=== PATIENT | male | born 1950 | race Caucasian/White ===

== ENCOUNTER 2022-05-11 23:14 | Inpatient (IN) | payer MEDICARE ==
[2022-05-11 23:36] VITALS: BMI 21.5
[2022-05-11] MEDS ORDERED: Acetaminophen 325 MG TAB PO PRN (23:54)
[2022-05-11] MEDS ORDERED: Ondansetron PF 4 MG/2 ML Vial IVP PRN (23:54)
[2022-05-11] MEDS ORDERED: Guaifenesin DM 100-10/5 ML UDCUP PO PRN (23:54)
[2022-05-11] MEDS ORDERED: Senokot S 8.6-50 MG TAB PO PRN (23:54)
[2022-05-11] MEDS ORDERED: Calcium Carbonate 500 MG ChewTAB PO PRN (23:54)
[2022-05-11] MEDS ORDERED: HYDROcodone/Acetaminophen 5/325 mg Tablet PO PRN (23:54)
[2022-05-12] MEDS ORDERED: Dextrose 5% in Water 1,000 ML IV PRN (00:03)
[2022-05-12] MEDS ORDERED: Dextrose 50% Abboject 50 ML SYRINGE SLOW IVP PRN (00:03)
[2022-05-12] MEDS ORDERED: HumaLOG 300 UNITS/3 ML VIAL SC PRN (00:03)
[2022-05-12] MEDS ORDERED: Lactated Ringer's 500 ML IV SCH ×2 (00:15)
[2022-05-12] MEDS ORDERED: Piperacillin/Tazobactam 3.375 GM in Sodium Chloride 0.9% 100 ML IVPB SCH ×2 (01:00→06:00)
[2022-05-12 05:02] LABS: #Eosinphils 0.4 10x3/uL (0.0-0.5); #Monocytes 0.7 10x3/uL (0.0-1.1); #Neutrophils 4.5 10x3/uL (1.5-8.4); %Basophils 0.5 % (0.0-2.0); %Eosinophils 4.3 % (0.0-6.0); %Lymphocytes 31.1 % (18.0-47.0); %Monocytes 8.2 % (0.0-10.0); %Neutrophils 55.7 % (40.0-75.0); Hemoglobin 11.6 g/dL (13.5-17.5); Mean Corpuscular HGB CONC 32.6 g/dL (32.0-36.0); Mean Corpuscular Hemoglobin 31.4 pg (27.0-33.0); Mean Corpuscular Volume 96.2 fl (81.2-95.1); Mean Platelet Volume 10.6 fl (7.4-10.4); Platelet Count 245 10x3/uL (150-450); RBC Distribution Width 14.8 % (11.5-14.5); White Blood Cell (WBC) Count 8.1 10x3/uL (3.5-10.5)
[2022-05-12 05:12] LABS: INR-International Normal Ratio 1.4; PTT 26.2 sec (22.0-33.0); Prothrombin Time 14.8 sec (9.5-12.1)
[2022-05-12 05:13] LABS: Anion Gap 13 mmol/L (10-20); BUN (Urea Nitrogen) 16 mg/dL (8.4-25.7); Calc. Creatinine Clearance 55 mL/min (70-130); Calcium 8.9 mg/dL (7.8-10.44); Carbon Dioxide 23 mmol/L (23-31); Cardiac Risk 4.5 (Less than 4.5); Chloride 108 mmol/L (98-107); Cholesterol 171 mg/dl (< 200 Desired); Estimated GFR 56; Glucose 173 mg/dL (80-115); HDL Cholesterol 38 mg/dL (>60 Neg Risk); LDL Cholesterol, Calculated 109 mg/dL; Potassium 4.1 mmol/L (3.5-5.1); Sodium 140 mmol/L (136-145); Triglycerides 119 mg/dL (Less than 150)
[2022-05-12] MEDS: Piperacillin/Tazobactam 3.375 GM in Sodium Chloride 0.9% 100 ML IVPB SCH ×3 (06:11→20:18)
[2022-05-12 06:35] LABS: SARS-CoV-2 NAA Rapid Test Not Detected (NotDetected)
[2022-05-12] MEDS: Mometasone/Formoterol 200/5 60 PUFF INH SCH ×2 (07:30→20:25)
[2022-05-12] MEDS ORDERED: Nicotine 14 MG PATCH TD PRN (09:35)
[2022-05-12] MEDS: HYDROcodone/Acetaminophen 7.5/325 mg Tablet PO PRN ×2 (11:15→17:16)
[2022-05-12] MEDS: metFORMIN 500 MG TAB PO SCH ×2 (11:16→17:16)
[2022-05-12] MEDS: Famotidine 20 MG TAB PO SCH ×2 (11:16→20:19)
[2022-05-12] MEDS: Vancomycin HCl 750 MG in Sodium Chloride 0.9% 250 ML 250 ML IVPB SCH ×2 (11:16→20:19)
[2022-05-12] MEDS: Enoxaparin Sodium 80 MG/0.8 ML SYRINGE SC SCH ×2 (11:16→20:19)
[2022-05-12] MEDS: Aspirin 81 mg Enteric Coated Tablet PO SCH (11:16)
[2022-05-12 12:19] LABS: Hemoglobin A1c 5.1 % (4.0-6.0)
[2022-05-12] MEDS ORDERED: Magnevist 469MG/ML 20 ML VIAL ONE (14:40)
[2022-05-12] MEDS: Morphine 2 MG/ML VIAL SLOW IVP PRN (20:19)
[2022-05-12] MEDS ORDERED: Atorvastatin Calcium 10 MG TAB PO SCH (21:00)
[2022-05-12] MEDS ORDERED: Atorvastatin Calcium 20 MG TAB PO SCH (21:00)
[2022-05-13] MEDS: HYDROcodone/Acetaminophen 7.5/325 mg Tablet PO PRN ×3 (01:24→21:02)
[2022-05-13] MEDS: Piperacillin/Tazobactam 3.375 GM in Sodium Chloride 0.9% 100 ML IVPB SCH ×3 (04:30→21:02)
[2022-05-13] MEDS: Morphine 2 MG/ML VIAL SLOW IVP PRN ×3 (05:02→17:28)
[2022-05-13] MEDS: Mometasone/Formoterol 200/5 60 PUFF INH SCH ×2 (07:54→19:50)
[2022-05-13] MEDS ORDERED: Sodium Chloride 0.9% 250 ML 250 ML ONE (10:25)
[2022-05-13] MEDS ORDERED: Polyethylene Glycol 3350 17 GM Packet PO PRN (10:51)
[2022-05-13] MEDS ORDERED: Docusate 100 MG CAP PO PRN (10:51)
[2022-05-13] MEDS ORDERED: Docusate 100 MG CAP PO SCH (11:00)
[2022-05-13] MEDS: Enoxaparin Sodium 80 MG/0.8 ML SYRINGE SC SCH ×2 (11:23→21:02)
[2022-05-13] MEDS: Aspirin 81 mg Enteric Coated Tablet PO SCH (11:23)
[2022-05-13] MEDS: Famotidine 20 MG TAB PO SCH ×2 (11:23→21:02)
[2022-05-13] MEDS: Vancomycin HCl 750 MG in Sodium Chloride 0.9% 250 ML 250 ML IVPB SCH ×2 (11:24→21:02)
[2022-05-13] MEDS ORDERED: Warfarin Sodium 7.5 MG TAB PO SCH (17:00)
[2022-05-13 20:26] LABS: Vancomycin, Trough 18.7 ug/mL
[2022-05-13] MEDS ORDERED: Atorvastatin Calcium 40 MG TAB PO SCH (21:00)
[2022-05-13] MEDS: Morphine 4 MG/ML VIAL SLOW IVP PRN (21:05)
[2022-05-14] MEDS: HYDROcodone/Acetaminophen 7.5/325 mg Tablet PO PRN ×2 (01:50→08:51)
[2022-05-14 04:31] LABS: Hemoglobin 11.1 g/dL (13.5-17.5); Mean Corpuscular HGB CONC 32.7 g/dL (32.0-36.0); Mean Corpuscular Hemoglobin 31.8 pg (27.0-33.0); Mean Corpuscular Volume 97.1 fl (81.2-95.1); Mean Platelet Volume 10.9 fl (7.4-10.4); Platelet Count 246 10x3/uL (150-450); RBC Distribution Width 14.7 % (11.5-14.5); Red Blood Cell (RBC) Count 3.49 10x6/uL (4.32-5.72); White Blood Cell (WBC) Count 8.6 10x3/uL (3.5-10.5)
[2022-05-14 04:33] LABS: INR-International Normal Ratio 1.4; Prothrombin Time 14.9 sec (9.5-12.1)
[2022-05-14 04:38] LABS: Anion Gap 13 mmol/L (10-20); BUN (Urea Nitrogen) 15 mg/dL (8.4-25.7); Calc. Creatinine Clearance 55 mL/min (70-130); Calcium 8.8 mg/dL (7.8-10.44); Carbon Dioxide 21 mmol/L (23-31); Chloride 111 mmol/L (98-107); Estimated GFR 56; Glucose 100 mg/dL (80-115); Potassium 4.2 mmol/L (3.5-5.1); Sodium 141 mmol/L (136-145)
[2022-05-14] MEDS: Piperacillin/Tazobactam 3.375 GM in Sodium Chloride 0.9% 100 ML IVPB SCH (05:13)
[2022-05-14] MEDS: Morphine 4 MG/ML VIAL SLOW IVP PRN ×2 (05:29→11:43)
[2022-05-14] MEDS: Mometasone/Formoterol 200/5 60 PUFF INH SCH (07:44)
[2022-05-14] MEDS: Aspirin 81 mg Enteric Coated Tablet PO SCH (08:30)
[2022-05-14] MEDS: Famotidine 20 MG TAB PO SCH (08:30)
[2022-05-14] MEDS: Enoxaparin Sodium 80 MG/0.8 ML SYRINGE SC SCH (08:30)
[2022-05-14 15:05] VITALS: BP 146/79; TEMP 96.1
[2022-05-14] MEDS ORDERED: Warfarin Sodium 5 MG TAB PO SCH (17:00)
[2022-05-14] MEDS ORDERED: VANCOMYCIN IVPB SCH (21:00)
== END 2022-05-14 15:05 | disposition home or self-care (01) | DRG 593 ==
LOC: CSHTELE 23:14
PROVIDERS: ADMIT Student in an Organized Health Care Education/Training Program; ATTEND Internal Medicine
DX: L97.523 Non-pressure chronic ulcer of other part of left foot with necrosis of muscle (principal); I69.351 Hemiplegia and hemiparesis following cerebral infarction affecting right dominant side; L03.116 Cellulitis of left lower limb; I25.10 Atherosclerotic heart disease of native coronary artery without angina pectoris; I10 Essential (primary) hypertension; R73.03 Prediabetes; I73.9 Peripheral vascular disease, unspecified; I48.0 Paroxysmal atrial fibrillation; Z20.822 Contact with and (suspected) exposure to COVID-19; Z95.1 Presence of aortocoronary bypass graft; Z95.5 Presence of coronary angioplasty implant and graft; Z87.891 Personal history of nicotine dependence; Z79.01 Long term (current) use of anticoagulants
CPT/HCPCS: 36415; 36416; 80048; 80061; 80202; 83036; 84145; 85025; 85027; 85610; 85652; 85730; 86140; 93005; 93010; 93923; 94664; 97139; A9579; J1650; J1815; J2270; J2543; J3370; J3490; J7050; J7120; U0002

== ENCOUNTER 2022-10-31 20:21 | Inpatient (IN) | payer MEDICARE ==
[2022-10-31] MEDS ORDERED: Diltiazem 125 MG/25 ML ONE (21:35)
[2022-10-31 21:44] LABS: Bilirubin Neg (Negative); Blood, Urine 25 (Negative); Clarity Slightly Cloudy (Clear); Glucose, Urine (Dipstick) Normal (Negative); Ketone, Urine 5 mg/dL (Negative); Leukocyte 500 (Negative); Nitrite Positive (Negative); Protein, Urine (Dipstick) 30 mg/dl (Neg-Trace); Specific Gravity, Urine 1.015 (1.005-1.030)
[2022-10-31 21:55] LABS: Bacteria/HPF 2+ HPF (None Seen); RBC/HPF 0-3 HPF (0-3); Squamous Epithelial 0-3 HPF (0-3); WBC/HPF 21-50 HPF (0-3)
[2022-10-31 22:20] LABS: #Eosinphils 0.1 10x3/uL (0.0-0.5); #Neutrophils 12.9 10x3/uL (1.5-8.4); %Basophils 0.3 % (0.0-2.0); %Eosinophils 0.4 % (0.0-6.0); %Lymphocytes 10.7 % (18.0-47.0); %Monocytes 6.2 % (0.0-10.0); %Neutrophils 81.8 % (40.0-75.0); Hemoglobin 9.7 g/dL (13.5-17.5); Mean Corpuscular HGB CONC 32.6 g/dL (32.0-36.0); Mean Corpuscular Hemoglobin 28.8 pg (27.0-33.0); Mean Corpuscular Volume 88.4 fl (81.2-95.1); Mean Platelet Volume 10.8 fl (7.4-10.4); Platelet Count 426 10x3/uL (150-450); RBC Distribution Width 15.3 % (11.5-14.5); Red Blood Cell (RBC) Count 3.37 10x6/uL (4.32-5.72); White Blood Cell (WBC) Count 15.8 10x3/uL (3.5-10.5)
[2022-10-31 22:22] LABS: ALT (SGPT) 15 U/L (8-55); AST (SGOT) 21 U/L (5-34); Albumin 3.6 g/dL (3.4-4.8); Alkaline Phosphatase 112 U/L (40-110); Anion Gap 16 mmol/L (10-20); BUN (Urea Nitrogen) 22 mg/dL (8.4-25.7); Bilirubin, Total 0.5 mg/dL (0.2-1.2); Calc. Creatinine Clearance 0 mL/min (70-130); Calcium 8.8 mg/dL (7.8-10.44); Carbon Dioxide 17 mmol/L (23-31); Chloride 103 mmol/L (98-107); Estimated GFR 52; Globulin 3.4 g/dL (2.4-3.5); Glucose 96 mg/dL (80-115); Potassium 4.4 mmol/L (3.5-5.1); Sodium 132 mmol/L (136-145)
[2022-10-31] MEDS ORDERED: Vancomycin 1 GM VIAL ONE (22:24)
[2022-10-31] MEDS ORDERED: Cefepime 2 GM VIAL ONE (22:24)
[2022-10-31 22:26] LABS: INR-International Normal Ratio 3.8; PTT 52.3 sec (22.0-33.0); Prothrombin Time 38.4 sec (9.5-12.1)
[2022-11-01] MEDS ORDERED: Ondansetron ODT 4 MG TAB PO PRN (00:56)
[2022-11-01] MEDS ORDERED: Acetaminophen 325 MG TAB PO PRN (00:56)
[2022-11-01] MEDS ORDERED: Senokot S 8.6-50 MG TAB PO PRN (00:56)
[2022-11-01] MEDS ORDERED: Bisacodyl 5 MG TAB PO PRN (00:56)
[2022-11-01] MEDS ORDERED: Diltiazem 125 MG in Sodium Chloride 0.9% 100 ML IVPB SCH ×2 (01:15→12:05)
[2022-11-01] MEDS ORDERED: Dextrose 5%-Lactated Ringers 1,000 ML IV SCH (01:15)
[2022-11-01] MEDS ORDERED: HYDROcodone/Acetaminophen 5/325 mg Tablet ONE (01:38)
[2022-11-01] MEDS: HYDROcodone/Acetaminophen 5/325 mg Tablet PO PRN (01:52)
[2022-11-01 01:58] LABS: SARS-CoV-2 NAA Rapid Test Not Detected (NotDetected)
[2022-11-01 03:42] LABS: #Monocytes 1.1 10x3/uL (0.0-1.1); #Neutrophils 12.2 10x3/uL (1.5-8.4); %Basophils 0.3 % (0.0-2.0); %Eosinophils 0.2 % (0.0-6.0); %Lymphocytes 10.7 % (18.0-47.0); %Monocytes 7.2 % (0.0-10.0); %Neutrophils 80.9 % (40.0-75.0); Mean Corpuscular HGB CONC 32.8 g/dL (32.0-36.0); Mean Corpuscular Volume 88.4 fl (81.2-95.1); Mean Platelet Volume 10.3 fl (7.4-10.4); Platelet Count 359 10x3/uL (150-450); RBC Distribution Width 15.4 % (11.5-14.5); White Blood Cell (WBC) Count 15.1 10x3/uL (3.5-10.5)
[2022-11-01 03:50] LABS: Anion Gap 15 mmol/L (10-20); BUN (Urea Nitrogen) 20 mg/dL (8.4-25.7); Calc. Creatinine Clearance 0 mL/min (70-130); Calcium 8.6 mg/dL (7.8-10.44); Carbon Dioxide 17 mmol/L (23-31); Chloride 106 mmol/L (98-107); Estimated GFR 65; Glucose 105 mg/dL (80-115); Sodium 134 mmol/L (136-145)
[2022-11-01] MEDS ORDERED: Piperacillin/Tazobactam 3.375 GM VIAL ONE ×2 (05:32→13:59)
[2022-11-01] MEDS: Piperacillin/Tazobactam 3.375 GM in Sodium Chloride 0.9% 100 ML IVPB SCH ×3 (05:41→21:00)
[2022-11-01 08:35] VITALS: BMI 17.2
[2022-11-01] MEDS ORDERED: Vancomycin 1.5 GRAM/300 ML BAG IVPB SCH (09:00)
[2022-11-01] MEDS ORDERED: Furosemide 20 MG/2 ML VIAL SLOW IVP SCH (09:00)
[2022-11-01] MEDS ORDERED: Polyethylene Glycol 3350 17 GM Packet PO SCH (09:00)
[2022-11-01] MEDS: Famotidine 20 MG TAB PO SCH ×2 (09:20→21:00)
[2022-11-01] MEDS: Finasteride 5 MG TAB PO SCH (09:21)
[2022-11-01] MEDS ORDERED: Furosemide 40 MG/4 ML VIAL ONE (09:29)
[2022-11-01] MEDS ORDERED: Morphine 2 MG/ML VIAL SLOW IVP PRN (11:25)
[2022-11-01] MEDS ORDERED: Morphine 2 MG/ML VIAL ONE (11:45)
[2022-11-01] MEDS ORDERED: Morphine 4 MG/ML VIAL SLOW IVP PRN (12:29)
[2022-11-01] MEDS ORDERED: Morphine 2 MG/ML VIAL SLOW IVP SCH (12:45)
[2022-11-01 12:49] LABS: INR-International Normal Ratio 3.9; PTT 59.2 sec (22.0-33.0); Prothrombin Time 39.1 sec (9.5-12.1)
[2022-11-01] MEDS ORDERED: ADMIXTURE FEE IV SCH (13:15)
[2022-11-01] MEDS ORDERED: HUMAN PROTHROMBIN COMPLX IV SCH (13:15)
[2022-11-01] MEDS ORDERED: Lidocaine 1% MPF 2 ML VIAL ONE (13:26)
[2022-11-01] MEDS ORDERED: Ketamine 50 MG/ML (10ML VIAL) ONE (13:39)
[2022-11-01] MEDS ORDERED: Norepinephrine 4 MG/4 ML VIAL ONE (13:40)
[2022-11-01] MEDS ORDERED: Phenylephrine 10 MG/ML VIAL ONE (13:41)
[2022-11-01 15:01] LABS: INR-International Normal Ratio 1.3; Prothrombin Time 14.1 sec (9.5-12.1)
[2022-11-01] MEDS ORDERED: Fentanyl 100 MCG/2 ML VIAL ONE (15:17)
[2022-11-01] MEDS ORDERED: SUGAMMADEX SODIUM 200 MG/2 ML VIAL ONE (16:20)
[2022-11-01] MEDS ORDERED: HYDROcodone/Acetaminophen 10/325 mg Tablet PO PRN (17:04)
[2022-11-01] MEDS ORDERED: Gabapentin 300 MG CAP PO SCH (17:15)
[2022-11-01] MEDS ORDERED: Fentanyl 100 MCG/2 ML VIAL SLOW IVP SCH (17:15)
[2022-11-01] MEDS ORDERED: Metoprolol Tartrate 50 MG TAB PO SCH (17:15)
[2022-11-01] MEDS ORDERED: Morphine ER 15 MG TAB PO SCH (21:00)
[2022-11-01] MEDS: Atorvastatin Calcium 40 MG TAB PO SCH (21:00)
[2022-11-01] MEDS: Senokot S 8.6-50 MG TAB PO SCH (21:21)
[2022-11-01] MEDS: Fentanyl 100 MCG/2 ML VIAL SLOW IVP PRN (21:44)
[2022-11-02] MEDS: VANCOMYCIN 1.25 GM/250 ML BAG 1.25 GM in Premix Bag 1 BAG IVPB SCH (00:53)
[2022-11-02 03:45] LABS: #Basophils 0.1 10x3/uL (0.0-0.2); #Eosinphils 0.1 10x3/uL (0.0-0.5); #Monocytes 1.1 10x3/uL (0.0-1.1); #Neutrophils 11.8 10x3/uL (1.5-8.4); %Basophils 0.4 % (0.0-2.0); %Eosinophils 0.3 % (0.0-6.0); %Lymphocytes 13.3 % (18.0-47.0); %Monocytes 7.5 % (0.0-10.0); %Neutrophils 77.8 % (40.0-75.0); Hemoglobin 8.1 g/dL (13.5-17.5); Mean Corpuscular HGB CONC 32.5 g/dL (32.0-36.0); Mean Corpuscular Hemoglobin 28.8 pg (27.0-33.0); Mean Corpuscular Volume 88.6 fl (81.2-95.1); Mean Platelet Volume 10.3 fl (7.4-10.4); Platelet Count 368 10x3/uL (150-450); RBC Distribution Width 15.4 % (11.5-14.5); Red Blood Cell (RBC) Count 2.81 10x6/uL (4.32-5.72); White Blood Cell (WBC) Count 15.2 10x3/uL (3.5-10.5)
[2022-11-02 03:56] LABS: INR-International Normal Ratio 2.1; PTT 40.6 sec (22.0-33.0); Prothrombin Time 21.6 sec (9.5-12.1)
[2022-11-02 03:57] LABS: Phosphorus 2.8 mg/dL (2.3-4.7)
[2022-11-02 03:59] LABS: ALT (SGPT) 16 U/L (8-55); AST (SGOT) 27 U/L (5-34); Albumin 2.9 g/dL (3.4-4.8); Alkaline Phosphatase 145 U/L (40-110); Anion Gap 14 mmol/L (10-20); BUN (Urea Nitrogen) 11 mg/dL (8.4-25.7); Bilirubin, Total 0.5 mg/dL (0.2-1.2); Calc. Creatinine Clearance 61 mL/min (70-130); Calcium 8.3 mg/dL (7.8-10.44); Carbon Dioxide 19 mmol/L (23-31); Chloride 105 mmol/L (98-107); Estimated GFR 85; Globulin 3.3 g/dL (2.4-3.5); Glucose 88 mg/dL (80-115); Magnesium 1.2 mg/dL (1.6-2.6); Potassium 3.4 mmol/L (3.5-5.1); Protein, Total 6.2 g/dL (5.8-8.1); Sodium 135 mmol/L (136-145)
[2022-11-02] MEDS: Piperacillin/Tazobactam 3.375 GM in Sodium Chloride 0.9% 100 ML IVPB SCH ×3 (05:33→21:07)
[2022-11-02] MEDS ORDERED: D5 LR w/20 mEq KCL 1,000 ML IV SCH ×3 (08:00→09:30)
[2022-11-02] MEDS ORDERED: Electrolyte Replacement Protocol 1 EACH FS PRN (08:00)
[2022-11-02] MEDS ORDERED: Potassium Chloride 20 MEQ TAB PO SCH (08:00)
[2022-11-02] MEDS ORDERED: Polyethylene Glycol 3350 17 GM Packet PO PRN (08:51)
[2022-11-02] MEDS: Famotidine 20 MG TAB PO SCH ×2 (08:54→20:36)
[2022-11-02] MEDS: Finasteride 5 MG TAB PO SCH (08:54)
[2022-11-02] MEDS: Magnesium 2 GM/50 ML(in water) 2 GM in Premix Bag 1 BAG IVPB SCH ×2 (08:54→10:45)
[2022-11-02] MEDS: Metoprolol Tartrate 50 MG TAB PO SCH ×2 (08:54→20:37)
[2022-11-02] MEDS: Senokot S 8.6-50 MG TAB PO SCH ×2 (08:54→20:36)
[2022-11-02] MEDS: HYDROcodone/Acetaminophen 5/325 mg Tablet PO PRN ×2 (08:57→14:04)
[2022-11-02] MEDS ORDERED: Polyethylene Glycol 3350 17 GM Packet PO SCH (09:00)
[2022-11-02] MEDS ORDERED: Gabapentin 300 MG CAP PO SCH (09:00)
[2022-11-02] MEDS: Fentanyl 100 MCG/2 ML VIAL SLOW IVP PRN ×3 (09:27→20:37)
[2022-11-02] MEDS: Potassium Chloride 20 MEQ, Admixture Fee 1 EACH in Dextrose 5%-Lactated Ringers 1,000 ML IV SCH (09:45)
[2022-11-02] MEDS ORDERED: Digoxin 0.5 MG/2 ML AMP SLOW IVP SCH (16:00)
[2022-11-02] MEDS: Aspirin 81 mg Enteric Coated Tablet PO SCH (20:36)
[2022-11-02] MEDS: Atorvastatin Calcium 40 MG TAB PO SCH (20:37)
[2022-11-02 23:34] LABS: Vancomycin, Trough 13.7 ug/mL
[2022-11-03] MEDS: VANCOMYCIN 1.25 GM/250 ML BAG 1.25 GM in Premix Bag 1 BAG IVPB SCH ×2 (00:05→22:37)
[2022-11-03] MEDS: Fentanyl 100 MCG/2 ML VIAL SLOW IVP PRN ×4 (01:26→17:19)
[2022-11-03 04:19] LABS: #Eosinphils 0.2 10x3/uL (0.0-0.5); #Monocytes 1.3 10x3/uL (0.0-1.1); #Neutrophils 11.2 10x3/uL (1.5-8.4); %Basophils 0.3 % (0.0-2.0); %Eosinophils 1.1 % (0.0-6.0); %Lymphocytes 14.8 % (18.0-47.0); %Monocytes 8.5 % (0.0-10.0); %Neutrophils 74.8 % (40.0-75.0); Hemoglobin 7.9 g/dL (13.5-17.5); Mean Corpuscular HGB CONC 31.5 g/dL (32.0-36.0); Mean Corpuscular Hemoglobin 28.4 pg (27.0-33.0); Mean Corpuscular Volume 90.3 fl (81.2-95.1); Mean Platelet Volume 10.4 fl (7.4-10.4); Platelet Count 338 10x3/uL (150-450); RBC Distribution Width 15.6 % (11.5-14.5); Red Blood Cell (RBC) Count 2.78 10x6/uL (4.32-5.72)
[2022-11-03 04:23] LABS: PTT 43.5 sec (22.0-33.0); Prothrombin Time 20.8 sec (9.5-12.1)
[2022-11-03 04:26] LABS: Anion Gap 16 mmol/L (10-20); BUN (Urea Nitrogen) 11 mg/dL (8.4-25.7); Calc. Creatinine Clearance 69 mL/min (70-130); Calcium 8.7 mg/dL (7.8-10.44); Carbon Dioxide 19 mmol/L (23-31); Chloride 107 mmol/L (98-107); Estimated GFR 93; Glucose 108 mg/dL (80-115); Magnesium 1.6 mg/dL (1.6-2.6); Potassium 4.8 mmol/L (3.5-5.1); Sodium 137 mmol/L (136-145)
[2022-11-03] MEDS: Potassium Chloride 20 MEQ, Admixture Fee 1 EACH in Dextrose 5%-Lactated Ringers 1,000 ML IV SCH (04:49)
[2022-11-03] MEDS ORDERED: Magnesium 2 GM/50 ML(in water) 2 GM in Premix Bag 1 BAG IVPB SCH (05:00)
[2022-11-03] MEDS: Piperacillin/Tazobactam 3.375 GM in Sodium Chloride 0.9% 100 ML IVPB SCH ×2 (05:02→19:31)
[2022-11-03] MEDS ORDERED: Naloxone HCl 0.4 mg/ml Vial IV PRN (08:30)
[2022-11-03] MEDS ORDERED: Polyethylene Glycol 3350 17 GM Packet PO PRN (08:35)
[2022-11-03] MEDS ORDERED: Dextrose 5%-Lactated Ringers 1,000 ML IV SCH (08:45)
[2022-11-03] MEDS ORDERED: Polyethylene Glycol 3350 17 GM Packet PO SCH (09:00)
[2022-11-03] MEDS ORDERED: Digoxin 0.5 MG/2 ML AMP SLOW IVP SCH ×2 (09:15→15:00)
[2022-11-03] MEDS: Metoprolol Tartrate 50 MG TAB PO SCH ×2 (09:22→20:30)
[2022-11-03] MEDS: Senokot S 8.6-50 MG TAB PO SCH ×2 (09:22→20:30)
[2022-11-03] MEDS: Chlorhexidine Gluconate 15 ML UDCUP SSP SCH ×2 (09:22→20:29)
[2022-11-03] MEDS: Morphine ER 15 MG TAB PO SCH ×2 (09:22→20:30)
[2022-11-03] MEDS: Finasteride 5 MG TAB PO SCH (09:23)
[2022-11-03] MEDS: Famotidine 20 MG TAB PO SCH ×2 (09:23→20:30)
[2022-11-03] MEDS: HYDROcodone/Acetaminophen 5/325 mg Tablet PO PRN ×2 (13:25→17:40)
[2022-11-03] MEDS ORDERED: Fentanyl 100 MCG/2 ML VIAL SLOW IVP SCH (18:30)
[2022-11-03] MEDS: Atorvastatin Calcium 40 MG TAB PO SCH (20:29)
[2022-11-03] MEDS: Bisacodyl 10 MG SUPP PR SCH (20:29)
[2022-11-03] MEDS: Aspirin 81 mg Enteric Coated Tablet PO SCH (20:30)
[2022-11-03] MEDS ORDERED: Morphine 2 MG/ML VIAL SLOW IVP PRN (21:23)
[2022-11-03] MEDS: Morphine 4 MG/ML VIAL SLOW IVP PRN (21:34)
[2022-11-04] MEDS: Morphine 4 MG/ML VIAL SLOW IVP PRN ×3 (00:10→18:33)
[2022-11-04] MEDS: HYDROcodone/Acetaminophen 5/325 mg Tablet PO PRN ×4 (01:20→20:15)
[2022-11-04 04:56] LABS: INR-International Normal Ratio 1.5; PTT 37.9 sec (22.0-33.0)
[2022-11-04 05:01] LABS: Phosphorus 2.6 mg/dL (2.3-4.7)
[2022-11-04 05:03] LABS: Anion Gap 13 mmol/L (10-20); BUN (Urea Nitrogen) 7 mg/dL (8.4-25.7); Calc. Creatinine Clearance 77 mL/min (70-130); Calcium 8.8 mg/dL (7.8-10.44); Carbon Dioxide 20 mmol/L (23-31); Chloride 109 mmol/L (98-107); Estimated GFR 96; Glucose 85 mg/dL (80-115); Magnesium 1.7 mg/dL (1.6-2.6); Potassium 4.2 mmol/L (3.5-5.1); Sodium 138 mmol/L (136-145)
[2022-11-04 05:13] LABS: #Eosinphils 0.2 10x3/uL (0.0-0.5); #Neutrophils 8.1 10x3/uL (1.5-8.4); %Basophils 0.3 % (0.0-2.0); %Eosinophils 1.9 % (0.0-6.0); %Lymphocytes 18.1 % (18.0-47.0); %Monocytes 8.3 % (0.0-10.0); Hemoglobin 7.9 g/dL (13.5-17.5); Mean Corpuscular HGB CONC 31.9 g/dL (32.0-36.0); Mean Corpuscular Hemoglobin 28.6 pg (27.0-33.0); Mean Corpuscular Volume 89.9 fl (81.2-95.1); Mean Platelet Volume 10.6 fl (7.4-10.4); Platelet Count 327 10x3/uL (150-450); RBC Distribution Width 15.5 % (11.5-14.5); Red Blood Cell (RBC) Count 2.76 10x6/uL (4.32-5.72); White Blood Cell (WBC) Count 11.5 10x3/uL (3.5-10.5)
[2022-11-04] MEDS ORDERED: Magnesium 2 GM/50 ML(in water) 2 GM in Premix Bag 1 BAG IVPB SCH (08:00)
[2022-11-04] MEDS: Morphine ER 15 MG TAB PO SCH (08:39)
[2022-11-04] MEDS: Metoprolol Tartrate 50 MG TAB PO SCH ×2 (08:40→20:16)
[2022-11-04] MEDS: Famotidine 20 MG TAB PO SCH ×2 (08:40→20:16)
[2022-11-04] MEDS: Finasteride 5 MG TAB PO SCH (08:40)
[2022-11-04] MEDS: Senokot S 8.6-50 MG TAB PO SCH ×2 (08:44→20:16)
[2022-11-04] MEDS: Chlorhexidine Gluconate 15 ML UDCUP SSP SCH ×2 (10:30→20:41)
[2022-11-04] MEDS ORDERED: Digoxin 0.25 MG TAB PO SCH (13:00)
[2022-11-04] MEDS: Atorvastatin Calcium 40 MG TAB PO SCH (20:16)
[2022-11-04] MEDS: Aspirin 81 mg Enteric Coated Tablet PO SCH (20:16)
[2022-11-04] MEDS: Bisacodyl 10 MG SUPP PR SCH (20:17)
[2022-11-04 22:30] LABS: Vancomycin, Trough 19.5 ug/mL
[2022-11-04] MEDS: Vancomycin HCl 1 GM in Sodium Chloride 0.9% 250 ML 250 ML IVPB SCH (23:56)
[2022-11-05] MEDS: Morphine 4 MG/ML VIAL SLOW IVP PRN ×2 (00:05→06:01)
[2022-11-05] MEDS: HYDROcodone/Acetaminophen 5/325 mg Tablet PO PRN ×2 (00:50→08:35)
[2022-11-05 04:05] LABS: #Eosinphils 0.4 10x3/uL (0.0-0.5); #Monocytes 0.8 10x3/uL (0.0-1.1); %Basophils 0.4 % (0.0-2.0); %Eosinophils 3.8 % (0.0-6.0); %Lymphocytes 20.4 % (18.0-47.0); %Monocytes 7.6 % (0.0-10.0); %Neutrophils 67.3 % (40.0-75.0); Mean Corpuscular HGB CONC 31.9 g/dL (32.0-36.0); Mean Corpuscular Hemoglobin 28.6 pg (27.0-33.0); Mean Corpuscular Volume 89.6 fl (81.2-95.1); Mean Platelet Volume 10.5 fl (7.4-10.4); Platelet Count 391 10x3/uL (150-450); RBC Distribution Width 15.2 % (11.5-14.5); White Blood Cell (WBC) Count 10.4 10x3/uL (3.5-10.5)
[2022-11-05 04:19] LABS: Anion Gap 13 mmol/L (10-20); BUN (Urea Nitrogen) 7 mg/dL (8.4-25.7); Calc. Creatinine Clearance 81 mL/min (70-130); Calcium 9.1 mg/dL (7.8-10.44); Carbon Dioxide 22 mmol/L (23-31); Chloride 107 mmol/L (98-107); Estimated GFR 98; Glucose 78 mg/dL (80-115); Potassium 3.9 mmol/L (3.5-5.1); Sodium 138 mmol/L (136-145)
[2022-11-05] MEDS: Famotidine 20 MG TAB PO SCH ×2 (08:34→21:26)
[2022-11-05] MEDS: Chlorhexidine Gluconate 15 ML UDCUP SSP SCH ×2 (08:34→21:29)
[2022-11-05] MEDS: Digoxin 0.25 MG TAB PO SCH (08:35)
[2022-11-05] MEDS: Finasteride 5 MG TAB PO SCH (08:35)
[2022-11-05] MEDS: Metoprolol Tartrate 50 MG TAB PO SCH ×2 (08:35→21:26)
[2022-11-05] MEDS ORDERED: Digoxin 0.05 MG/ML Oral Solution PO SCH (09:00)
[2022-11-05] MEDS: Senokot S 8.6-50 MG TAB PO SCH ×2 (09:12→23:33)
[2022-11-05] MEDS: Morphine 2 MG/ML VIAL SLOW IVP PRN ×2 (10:49→16:54)
[2022-11-05] MEDS: HYDROcodone/Acetaminophen 10/325 mg Tablet PO PRN ×2 (15:13→21:26)
[2022-11-05] MEDS: Atorvastatin Calcium 40 MG TAB PO SCH (21:26)
[2022-11-05] MEDS: Aspirin 81 mg Enteric Coated Tablet PO SCH (21:26)
[2022-11-05] MEDS: Vancomycin HCl 1 GM in Sodium Chloride 0.9% 250 ML 250 ML IVPB SCH (23:31)
[2022-11-05] MEDS: Bisacodyl 10 MG SUPP PR SCH (23:34)
[2022-11-06] MEDS: HYDROcodone/Acetaminophen 10/325 mg Tablet PO PRN ×2 (02:27→15:33)
[2022-11-06] MEDS: Metoprolol Tartrate 50 MG TAB PO SCH ×2 (08:44→22:15)
[2022-11-06] MEDS: Finasteride 5 MG TAB PO SCH (08:44)
[2022-11-06] MEDS: Digoxin 0.25 MG TAB PO SCH (08:44)
[2022-11-06] MEDS: Famotidine 20 MG TAB PO SCH ×2 (08:45→22:15)
[2022-11-06] MEDS: Chlorhexidine Gluconate 15 ML UDCUP SSP SCH ×2 (08:45→22:18)
[2022-11-06] MEDS: Morphine 2 MG/ML VIAL SLOW IVP PRN ×3 (08:46→22:11)
[2022-11-06] MEDS: Senokot S 8.6-50 MG TAB PO SCH ×2 (08:46→22:22)
[2022-11-06 10:27] LABS: #Basophils 0.1 10x3/uL (0.0-0.2); #Eosinphils 0.1 10x3/uL (0.0-0.5); #Monocytes 0.7 10x3/uL (0.0-1.1); #Neutrophils 7.8 10x3/uL (1.5-8.4); %Basophils 0.6 % (0.0-2.0); %Eosinophils 1.2 % (0.0-6.0); %Lymphocytes 13.4 % (18.0-47.0); %Monocytes 6.7 % (0.0-10.0); %Neutrophils 77.6 % (40.0-75.0); Hemoglobin 8.3 g/dL (13.5-17.5); Mean Corpuscular HGB CONC 32.2 g/dL (32.0-36.0); Mean Corpuscular Hemoglobin 28.5 pg (27.0-33.0); Mean Corpuscular Volume 88.7 fl (81.2-95.1); Mean Platelet Volume 10.5 fl (7.4-10.4); Platelet Count 420 10x3/uL (150-450); RBC Distribution Width 15.3 % (11.5-14.5); Red Blood Cell (RBC) Count 2.91 10x6/uL (4.32-5.72)
[2022-11-06 10:45] LABS: Anion Gap 15 mmol/L (10-20); BUN (Urea Nitrogen) 10 mg/dL (8.4-25.7); Calc. Creatinine Clearance 74 mL/min (70-130); Carbon Dioxide 22 mmol/L (23-31); Chloride 105 mmol/L (98-107); Sodium 138 mmol/L (136-145)
[2022-11-06 10:46] LABS: Calcium 9.2 mg/dL (7.8-10.44); Estimated GFR 95; Glucose 118 mg/dL (80-115)
[2022-11-06] MEDS: Aspirin 81 mg Enteric Coated Tablet PO SCH (22:15)
[2022-11-06] MEDS: Atorvastatin Calcium 40 MG TAB PO SCH (22:15)
[2022-11-06] MEDS: Bisacodyl 10 MG SUPP PR SCH (22:22)
[2022-11-06 22:52] LABS: Vancomycin, Trough 18.1 ug/mL
[2022-11-07] MEDS: Vancomycin HCl 1 GM in Sodium Chloride 0.9% 250 ML 250 ML IVPB SCH (00:07)
[2022-11-07] MEDS: HYDROcodone/Acetaminophen 10/325 mg Tablet PO PRN ×4 (00:15→21:24)
[2022-11-07] MEDS: Finasteride 5 MG TAB PO SCH (08:52)
[2022-11-07] MEDS: Metoprolol Tartrate 50 MG TAB PO SCH ×2 (08:52→21:25)
[2022-11-07] MEDS: Famotidine 20 MG TAB PO SCH ×2 (08:52→21:25)
[2022-11-07] MEDS: Chlorhexidine Gluconate 15 ML UDCUP SSP SCH ×2 (08:52→21:42)
[2022-11-07] MEDS: Digoxin 0.25 MG TAB PO SCH (08:52)
[2022-11-07] MEDS: Senokot S 8.6-50 MG TAB PO SCH ×2 (08:52→21:29)
[2022-11-07] MEDS ORDERED: Tamsulosin HCl 0.4 MG CAP PO SCH (21:00)
[2022-11-07] MEDS: Aspirin 81 mg Enteric Coated Tablet PO SCH (21:24)
[2022-11-07] MEDS: Atorvastatin Calcium 40 MG TAB PO SCH (21:24)
[2022-11-08] MEDS: HYDROcodone/Acetaminophen 10/325 mg Tablet PO PRN ×2 (03:25→15:12)
[2022-11-08] MEDS: Famotidine 20 MG TAB PO SCH (08:59)
[2022-11-08] MEDS: Metoprolol Tartrate 50 MG TAB PO SCH (08:59)
[2022-11-08] MEDS: Finasteride 5 MG TAB PO SCH (08:59)
[2022-11-08] MEDS: Morphine 2 MG/ML VIAL SLOW IVP PRN (09:00)
[2022-11-08] MEDS ORDERED: Polyethylene Glycol 3350 17 GM Packet PO SCH (09:00)
[2022-11-08] MEDS: Chlorhexidine Gluconate 15 ML UDCUP SSP SCH (09:07)
[2022-11-08] MEDS: Digoxin 0.25 MG TAB PO SCH (09:07)
[2022-11-08] MEDS: Senokot S 8.6-50 MG TAB PO SCH (09:08)
[2022-11-08 20:06] VITALS: BP 136/59; TEMP 98.3
== END 2022-11-08 16:39 | DRG 854 ==
LOC: CSHERS 20:21 → CSHERHOLD 11-01 01:16 → CSHIMCU 11-01 14:36 → CSHTELE 11-03 23:43
PROVIDERS: ADMIT Student in an Organized Health Care Education/Training Program; ATTEND Family Medicine
PROC: 0Y6D0Z1 Detachment at Left Upper Leg, High, Open Approach (ICD-10-PCS; principal; 2022-11-01)
PROC: 3E03329 Introduction of Other Anti-infective into Peripheral Vein, Percutaneous Approach (ICD-10-PCS; 2022-11-01)
PROC: 30283B1 Transfusion of Nonautologous 4-Factor Prothrombin Complex Concentrate into Vein, Percutaneous Approach (ICD-10-PCS; 2022-11-01)
DX: A41.9 Sepsis, unspecified organism (principal); E11.52 Type 2 diabetes mellitus with diabetic peripheral angiopathy with gangrene; E44.0 Moderate protein-calorie malnutrition; T83.511A Infection and inflammatory reaction due to indwelling urethral catheter, initial encounter; N30.01 Acute cystitis with hematuria; I50.32 Chronic diastolic (congestive) heart failure; N17.9 Acute kidney failure, unspecified; I48.19 Other persistent atrial fibrillation; I96 Gangrene, not elsewhere classified; E87.20 Acidosis, unspecified; E87.1 Hypo-osmolality and hyponatremia; Z68.1 Body mass index [BMI] 19.9 or less, adult; I13.0 Hypertensive heart and chronic kidney disease with heart failure and stage 1 through stage 4 chronic kidney disease, or unspecified chronic kidney disease; I25.10 Atherosclerotic heart disease of native coronary artery without angina pectoris; R65.20 Severe sepsis without septic shock; Y83.8 Other surgical procedures as the cause of abnormal reaction of the patient, or of later complication, without mention of misadventure at the time of the procedure; I27.20 Pulmonary hypertension, unspecified; N18.2 Chronic kidney disease, stage 2 (mild); E87.6 Hypokalemia; E83.42 Hypomagnesemia; Z20.822 Contact with and (suspected) exposure to COVID-19; D63.1 Anemia in chronic kidney disease; Z79.01 Long term (current) use of anticoagulants; Z79.899 Other long term (current) drug therapy; Z79.82 Long term (current) use of aspirin; Z79.84 Long term (current) use of oral hypoglycemic drugs; Z86.73 Personal history of transient ischemic attack (TIA), and cerebral infarction without residual deficits; Z95.1 Presence of aortocoronary bypass graft; Z95.5 Presence of coronary angioplasty implant and graft; Z89.611 Acquired absence of right leg above knee
CPT/HCPCS: 36415; 36416; 36430; 71045; 80048; 80053; 80202; 81003; 81015; 83605; 83735; 83880; 84100; 84484; 85025; 85610; 85730; 86850; 86900; 86901; 87040; 87077; 87086; 87186; 87811; 88307; 88311; 93005; 94760; 96365; 96374; 96375; J0692; J1160; J1642; J1940; J1956; J2270; J2272; J2370; J2543; J3010; J3370; J3475; J3480; J3490; J7050; J7168; U0002

== ENCOUNTER 2022-11-20 08:56 | Inpatient (IN) | payer MEDICARE ==
[2022-11-20] MEDS ORDERED: Morphine 4 MG/ML VIAL ONE (09:12)
[2022-11-20 09:31] LABS: Actual Bicarbonate (HCO3v) 23 mEq/L (22-28); Base Excess -1.5 mEq/L (-2 - +2); Puncture Site Other Site
[2022-11-20 09:44] LABS: #Basophils 0.1 10x3/uL (0.0-0.2); #Eosinphils 0.3 10x3/uL (0.0-0.5); #Monocytes 1.2 10x3/uL (0.0-1.1); #Neutrophils 7.5 10x3/uL (1.5-8.4); %Basophils 0.7 % (0.0-2.0); %Eosinophils 2.7 % (0.0-6.0); %Lymphocytes 23.1 % (18.0-47.0); %Monocytes 10.4 % (0.0-10.0); %Neutrophils 62.4 % (40.0-75.0); Hemoglobin 8.1 g/dL (13.5-17.5); Mean Corpuscular HGB CONC 31.6 g/dL (32.0-36.0); Mean Corpuscular Hemoglobin 28.6 pg (27.0-33.0); Mean Corpuscular Volume 90.5 fl (81.2-95.1); Mean Platelet Volume 11.6 fl (7.4-10.4); Platelet Count 375 10x3/uL (150-450); RBC Distribution Width 16.7 % (11.5-14.5); Red Blood Cell (RBC) Count 2.83 10x6/uL (4.32-5.72); White Blood Cell (WBC) Count 11.9 10x3/uL (3.5-10.5)
[2022-11-20] MEDS ORDERED: Iopamidol 300 61% 100 ML VIAL FS ONE (09:55)
[2022-11-20 10:00] LABS: PTT 23.7 sec (22.0-33.0); Prothrombin Time 10.9 sec (9.5-12.1)
[2022-11-20] MEDS ORDERED: Metoprolol Tartrate 5 MG/5 ML VIAL ONE ×2 (10:00→10:47)
[2022-11-20 10:06] LABS: Digoxin Less than 0.15 ng/mL (0.8-2.0)
[2022-11-20 10:08] LABS: ALT (SGPT) 14 U/L (8-55); AST (SGOT) 46 U/L (5-34); Albumin 3.5 g/dL (3.4-4.8); Alkaline Phosphatase 111 U/L (40-110); Anion Gap 19 mmol/L (10-20); BUN (Urea Nitrogen) 22 mg/dL (8.4-25.7); Bilirubin, Total 0.7 mg/dL (0.2-1.2); Calc. Creatinine Clearance 0 mL/min (70-130); Calcium 8.8 mg/dL (7.8-10.44); Carbon Dioxide 21 mmol/L (23-31); Chloride 103 mmol/L (98-107); Estimated GFR 87; Globulin 2.9 g/dL (2.4-3.5); Glucose 147 mg/dL (80-115); Lipase 17 U/L (8-78); Magnesium 1.6 mg/dL (1.6-2.6); Potassium 3.9 mmol/L (3.5-5.1); Protein, Total 6.4 g/dL (5.8-8.1); Sodium 139 mmol/L (136-145)
[2022-11-20 10:21] LABS: SARS-CoV-2 NAA Rapid Test Not Detected (NotDetected)
[2022-11-20 10:26] LABS: CKMB 5.5 ng/mL (0-6.6)
[2022-11-20] MEDS ORDERED: Cefepime 1 GM VIAL ONE (12:30)
[2022-11-20] MEDS ORDERED: Vancomycin 1 GM VIAL ONE (12:30)
[2022-11-20 12:44] LABS: Lactic Acid 5.5 mmol/L (0.5-2.2)
[2022-11-20] MEDS ORDERED: Acetaminophen 650 MG Suppository PR PRN (14:12)
[2022-11-20] MEDS ORDERED: Diltiazem 125 MG in Sodium Chloride 0.9% 100 ML IVPB SCH (14:15)
[2022-11-20] MEDS ORDERED: Diltiazem 125 MG/25 ML ONE (14:21)
[2022-11-20] MEDS ORDERED: Sodium Chloride 0.9% 500 ML IV SCH (14:45)
[2022-11-20] MEDS: Heparin 5,000 UNITS/ML VIAL SC SCH ×2 (16:50→21:47)
[2022-11-20 18:10] LABS: Lactic Acid 7.2 mmol/L (0.5-2.2)
[2022-11-20] MEDS ORDERED: Sodium Chloride 0.9% 1,000 ML IV SCH (18:30)
[2022-11-20 20:54] LABS: Lactic Acid 5.6 mmol/L (0.5-2.2)
[2022-11-20] MEDS: Tamsulosin HCl 0.4 MG CAP PO SCH (21:47)
[2022-11-20] MEDS: Famotidine 20 MG TAB PO SCH (21:48)
[2022-11-20] MEDS: Atorvastatin Calcium 40 MG TAB PO SCH (21:48)
[2022-11-21] MEDS: HYDROcodone/Acetaminophen 5/325 mg Tablet PO PRN ×4 (01:21→17:49)
[2022-11-21] MEDS: Cefepime 2 GM in Sodium Chloride 0.9% 100 ML IVPB SCH ×3 (01:22→23:26)
[2022-11-21] MEDS ORDERED: Morphine 2 MG/ML VIAL SLOW IVP SCH (02:15)
[2022-11-21 04:35] LABS: #Neutrophils 14.1 10x3/uL (1.5-8.4); %Basophils 0.2 % (0.0-2.0); %Eosinophils 0.2 % (0.0-6.0); %Lymphocytes 7.4 % (18.0-47.0); %Monocytes 5.8 % (0.0-10.0); %Neutrophils 85.7 % (40.0-75.0); Hemoglobin 7.8 g/dL (13.5-17.5); Mean Corpuscular HGB CONC 29.9 g/dL (32.0-36.0); Mean Corpuscular Hemoglobin 28.2 pg (27.0-33.0); Mean Corpuscular Volume 94.2 fl (81.2-95.1); Mean Platelet Volume 12.1 fl (7.4-10.4); Platelet Count 318 10x3/uL (150-450); RBC Distribution Width 16.7 % (11.5-14.5); Red Blood Cell (RBC) Count 2.77 10x6/uL (4.32-5.72); White Blood Cell (WBC) Count 16.5 10x3/uL (3.5-10.5)
[2022-11-21] MEDS ORDERED: Digoxin 0.5 MG/2 ML AMP SLOW IVP SCH (04:45)
[2022-11-21 04:51] LABS: ALT (SGPT) 13 U/L (8-55); AST (SGOT) 50 U/L (5-34); Albumin 3.1 g/dL (3.4-4.8); Alkaline Phosphatase 92 U/L (40-110); Anion Gap 22 mmol/L (10-20); BUN (Urea Nitrogen) 16 mg/dL (8.4-25.7); Bilirubin, Total 0.6 mg/dL (0.2-1.2); Calc. Creatinine Clearance 64 mL/min (70-130); Calcium 8.4 mg/dL (7.8-10.44); Carbon Dioxide 16 mmol/L (23-31); Chloride 106 mmol/L (98-107); Estimated GFR 98; Globulin 2.9 g/dL (2.4-3.5); Glucose 147 mg/dL (80-115); Potassium 4.1 mmol/L (3.5-5.1); Sodium 140 mmol/L (136-145)
[2022-11-21 04:59] LABS: Anisocytosis SLIGHT = 6-15 cells (100X) (0-5/hpf)
[2022-11-21 05:00] LABS: Hypochromia SLIGHT = 6-15 cells (100X) (0-5/hpf); Platelet Morphology Comment Appears Adequate
[2022-11-21] MEDS ORDERED: Magnesium 2 GM/50 ML(in water) 2 GM in Premix Bag 1 BAG IVPB SCH (05:00)
[2022-11-21] MEDS ORDERED: Ondansetron PF 4 MG/2 ML Vial IVP SCH (05:45)
[2022-11-21] MEDS ORDERED: Furosemide 100 MG/10 ML VIAL SLOW IVP SCH (05:45)
[2022-11-21 06:37] LABS: CKMB 12.1 ng/mL (0-6.6)
[2022-11-21] MEDS: Diltiazem 125 MG in Sodium Chloride 0.9% 100 ML IVPB SCH (08:35)
[2022-11-21] MEDS: Aspirin 81 mg Enteric Coated Tablet PO SCH (08:39)
[2022-11-21] MEDS: Heparin 5,000 UNITS/ML VIAL SC SCH ×3 (08:39→21:41)
[2022-11-21] MEDS: Famotidine 20 MG TAB PO SCH ×2 (08:39→21:41)
[2022-11-21] MEDS ORDERED: Digoxin 0.25 MG TAB PO SCH (09:00)
[2022-11-21 10:43] LABS: Lactic Acid 15.7 mmol/L (0.5-2.2)
[2022-11-21] MEDS ORDERED: Digoxin 0.125 MG TAB PO SCH (11:00)
[2022-11-21 11:03] LABS: CKMB 12.5 ng/mL (0-6.6)
[2022-11-21 11:17] LABS: BUN (Urea Nitrogen) 17 mg/dL (8.4-25.7); Calc. Creatinine Clearance 59 mL/min (70-130); Calcium 8.9 mg/dL (7.8-10.44); Chloride 107 mmol/L (98-107); Estimated GFR 95; Glucose 103 mg/dL (80-115); Potassium 5.8 mmol/L (3.5-5.1); Sodium 140 mmol/L (136-145)
[2022-11-21 11:31] LABS: Carbon Dioxide Less than 8 mmol/L (23-31)
[2022-11-21 12:22] LABS: Bilirubin Neg (Negative); Blood, Urine 150 (Negative); Clarity Clear (Clear); Glucose, Urine (Dipstick) Normal (Negative); Ketone, Urine 15 mg/dL (Negative); Leukocyte Negative (Negative); Nitrite Negative (Negative); Protein, Urine (Dipstick) 15 mg/dl (Neg-Trace); Specific Gravity, Urine 1.015 (1.005-1.030); Urobilinogen Normal mg/dL (Less than 2)
[2022-11-21 12:22] LABS: Actual Bicarbonate (HCO3a) 5.7 mEq/L (22-28); Base Excess (BEa) -17.7 mEq/L (-2.0 to +3.0); CO2 Tension 10.6 mmHg (35.0-45.0); Calcium, Ionized (arterial) 1.17 mmol/L (1.12-1.30); Carboxyhemoglobin (COHb) 0.3 gm% (0.0-3.0); Hemoglobin (Hb) 8.5 g/dL (14.0-18.0); O2 Tension (PaO2), arterial 114.2 mmHg (> 70.0); Potassium - ABG Lab 5.2 mmol/L (3.70-5.30); Puncture Site LRA; pH, Arterial 7.35 (7.35-7.45)
[2022-11-21 12:55] LABS: Mucous/LPF 1+ LPF (<2+); RBC/HPF 0-3 HPF (0-3); Squamous Epithelial 0-3 HPF (0-3)
[2022-11-21 12:56] LABS: Bacteria/HPF 2+ HPF (None Seen)
[2022-11-21] MEDS ORDERED: Vancomycin HCl 750 MG in Sodium Chloride 0.9% 250 ML 250 ML IVPB SCH (13:00)
[2022-11-21 13:48] LABS: Troponin I 0.279 ng/mL (< 0.028)
[2022-11-21] MEDS: Vancomycin HCl 500 MG in Sodium Chloride 0.9% 100 ML IVPB SCH (13:50)
[2022-11-21] MEDS: Furosemide 40 MG/4 ML VIAL SLOW IVP SCH (13:50)
[2022-11-21] MEDS ORDERED: Furosemide 40 MG/4 ML VIAL SLOW IVP SCH (14:00)
[2022-11-21 15:43] LABS: Potassium 5.7 mmol/L (3.5-5.1)
[2022-11-21 16:33] LABS: Troponin I 0.449 ng/mL (< 0.028)
[2022-11-21 17:06] LABS: Hemoglobin A1c 5.1 % (4.0-6.0)
[2022-11-21] MEDS ORDERED: Iopamidol 370 76% 100 ML VIAL ONE (18:13)
[2022-11-21] MEDS ORDERED: Morphine 2 MG/ML VIAL SLOW IVP PRN (19:41)
[2022-11-21 20:08] LABS: Troponin I 0.513 ng/mL (< 0.028)
[2022-11-21 21:13] LABS: Potassium 5.4 mmol/L (3.5-5.1)
[2022-11-21] MEDS: Tamsulosin HCl 0.4 MG CAP PO SCH (21:41)
[2022-11-21] MEDS: Atorvastatin Calcium 40 MG TAB PO SCH (21:41)
[2022-11-21] MEDS: Sodium Bicarbonate 100 MEQ in Dextrose 5% in Water 1,000 ML IV SCH (23:25)
[2022-11-22] MEDS: Vancomycin HCl 500 MG in Sodium Chloride 0.9% 100 ML IVPB SCH (01:26)
[2022-11-22] MEDS: Furosemide 40 MG/4 ML VIAL SLOW IVP SCH ×2 (06:37→15:11)
[2022-11-22] MEDS: Aspirin 81 mg Enteric Coated Tablet PO SCH (09:04)
[2022-11-22] MEDS: Famotidine 20 MG TAB PO SCH (09:04)
[2022-11-22] MEDS: Heparin 5,000 UNITS/ML VIAL SC SCH ×3 (09:04→21:51)
[2022-11-22] MEDS: Digoxin 0.25 MG TAB PO SCH (09:04)
[2022-11-22 10:36] LABS: Hemoglobin 8.9 g/dL (13.5-17.5); MDiff Complete? YES; Mean Corpuscular HGB CONC 31.3 g/dL (32.0-36.0); Mean Corpuscular Hemoglobin 28.4 pg (27.0-33.0); Mean Corpuscular Volume 90.7 fl (81.2-95.1); Mean Platelet Volume 11.7 fl (7.4-10.4); Platelet Count 284 10x3/uL (150-450); RBC Distribution Width 17.1 % (11.5-14.5); Red Blood Cell (RBC) Count 3.13 10x6/uL (4.32-5.72); White Blood Cell (WBC) Count 16.7 10x3/uL (3.5-10.5)
[2022-11-22 10:50] LABS: Anion Gap 23 mmol/L (10-20); BUN (Urea Nitrogen) 33 mg/dL (8.4-25.7); Calc. Creatinine Clearance 33 mL/min (70-130); Calcium 7.3 mg/dL (7.8-10.44); Carbon Dioxide 16 mmol/L (23-31); Chloride 103 mmol/L (98-107); Estimated GFR 53; Glucose 134 mg/dL (80-115); Potassium 4.1 mmol/L (3.5-5.1); Sodium 138 mmol/L (136-145)
[2022-11-22] MEDS: Sodium Bicarbonate 100 MEQ in Dextrose 5% in Water 1,000 ML IV SCH ×2 (10:56→23:00)
[2022-11-22 10:58] LABS: Band 18 % (5-11); Lymphocytes 2 % (21-51); Monocytes 7 % (0-10); Neutrophil 73 % (42-75); Platelet Morphology Comment Appears Adequate
[2022-11-22 11:04] LABS: Hypochromia SLIGHT = 6-15 cells (100X) (0-5/hpf)
[2022-11-22 11:05] LABS: Anisocytosis SLIGHT = 6-15 cells (100X) (0-5/hpf)
[2022-11-22 11:06] LABS: Burr Cells MODERATE= 6-15 cells (100X) (0-1/hpf)
[2022-11-22] MEDS: Cefepime 2 GM in Sodium Chloride 0.9% 100 ML IVPB SCH ×2 (11:45→23:21)
[2022-11-22 12:35] LABS: Vancomycin, Trough 18.5 ug/mL
[2022-11-22] MEDS: Atorvastatin Calcium 40 MG TAB PO SCH (21:27)
[2022-11-22] MEDS: Tamsulosin HCl 0.4 MG CAP PO SCH (21:28)
[2022-11-23] MEDS: Diltiazem 125 MG in Sodium Chloride 0.9% 100 ML IVPB SCH (00:08)
[2022-11-23] MEDS ORDERED: Vancomycin HCl 750 MG in Sodium Chloride 0.9% 250 ML 250 ML IVPB SCH (01:30)
[2022-11-23 04:03] LABS: Hemoglobin 8.3 g/dL (13.5-17.5); Mean Corpuscular HGB CONC 33.1 g/dL (32.0-36.0); Mean Corpuscular Hemoglobin 28.4 pg (27.0-33.0); Mean Platelet Volume 12.5 fl (7.4-10.4); Platelet Count 236 10x3/uL (150-450); RBC Distribution Width 16.8 % (11.5-14.5); Red Blood Cell (RBC) Count 2.92 10x6/uL (4.32-5.72); White Blood Cell (WBC) Count 17.6 10x3/uL (3.5-10.5)
[2022-11-23 04:09] LABS: Anion Gap 21 mmol/L (10-20); BUN (Urea Nitrogen) 44 mg/dL (8.4-25.7); Calc. Creatinine Clearance 25 mL/min (70-130); Carbon Dioxide 22 mmol/L (23-31); Chloride 96 mmol/L (98-107); Estimated GFR 37; Glucose 118 mg/dL (80-115); Potassium 3.6 mmol/L (3.5-5.1); Sodium 135 mmol/L (136-145)
[2022-11-23 04:14] LABS: Calcium 6.4 mg/dL (7.8-10.44)
[2022-11-23 04:41] LABS: MDiff Complete? YES
[2022-11-23] MEDS ORDERED: Vancomycin Dose by Levels Sliding Scale (Wt <71) FS SCH (04:45)
[2022-11-23 05:00] LABS: Band 41 % (5-11); Lymphocytes 4 % (21-51); Metamyelocyte 1 % (0-0); Monocytes 3 % (0-10); Neutrophil 51 % (42-75)
[2022-11-23] MEDS ORDERED: CALCIUM GLUC 1 GM/NS 50 ML 1 GM in Premix Bag 1 BAG IVPB SCH (05:00)
[2022-11-23 05:02] LABS: Anisocytosis SLIGHT = 6-15 cells (100X) (0-5/hpf); Burr Cells SLIGHT = 2-5 cells (100X) (0-1/hpf); Platelet Morphology Comment Appears Adequate
[2022-11-23 05:03] LABS: Hypochromia SLIGHT = 6-15 cells (100X) (0-5/hpf)
[2022-11-23 05:54] VITALS: BMI 17.2
[2022-11-23] MEDS ORDERED: Lactated Ringer's 1,000 ML IV SCH ×2 (08:00→11:00)
[2022-11-23] MEDS ORDERED: Calcium Gluconate 4.6 MEQ in Sodium Chloride 0.9% 100 ML IVPB SCH (08:30)
[2022-11-23] MEDS: Heparin 5,000 UNITS/ML VIAL SC SCH (08:42)
[2022-11-23] MEDS ORDERED: Famotidine 20 MG TAB PO SCH (09:00)
[2022-11-23] MEDS: Digoxin 0.25 MG TAB PO SCH (09:49)
[2022-11-23] MEDS: Aspirin 81 mg Enteric Coated Tablet PO SCH (09:49)
[2022-11-23] MEDS ORDERED: Cefepime 1 GM in Sodium Chloride 0.9% 100 ML IVPB SCH (12:00)
[2022-11-23 12:07] VITALS: BP 131/55; TEMP 98.5
[2022-11-23] MEDS ORDERED: FLU VACC QS2022-23(65YR UP)/PF 240 MCG/0.7 ML SYRINGE IM ONE (18:15)
== END 2022-11-23 15:13 | disposition hospice, inpatient (51) | DRG 871 ==
LOC: CSHERS 08:56 → SUATTDRO 08:56 → CSHTELE 16:26 → CSHICU 11-21 13:36
PROVIDERS: ADMIT Internal Medicine; ATTEND Hospitalist
PROC: 3E03329 Introduction of Other Anti-infective into Peripheral Vein, Percutaneous Approach (ICD-10-PCS; principal; 2022-11-20)
PROC: 4A133R1 Monitoring of Arterial Saturation, Peripheral, Percutaneous Approach (ICD-10-PCS; 2022-11-20)
DX: A41.9 Sepsis, unspecified organism (principal); I50.23 Acute on chronic systolic (congestive) heart failure; J18.9 Pneumonia, unspecified organism; K55.059 Acute (reversible) ischemia of intestine, part and extent unspecified; J96.01 Acute respiratory failure with hypoxia; N17.9 Acute kidney failure, unspecified; Z66 Do not resuscitate; Z51.5 Encounter for palliative care; I48.91 Unspecified atrial fibrillation; I25.10 Atherosclerotic heart disease of native coronary artery without angina pectoris; I11.0 Hypertensive heart disease with heart failure; I73.9 Peripheral vascular disease, unspecified; N40.0 Benign prostatic hyperplasia without lower urinary tract symptoms; Z20.822 Contact with and (suspected) exposure to COVID-19; K21.9 Gastro-esophageal reflux disease without esophagitis; Z95.1 Presence of aortocoronary bypass graft; Z89.511 Acquired absence of right leg below knee; Z86.73 Personal history of transient ischemic attack (TIA), and cerebral infarction without residual deficits; Z95.5 Presence of coronary angioplasty implant and graft; Z89.612 Acquired absence of left leg above knee; Z79.82 Long term (current) use of aspirin; Z79.899 Other long term (current) drug therapy
CPT/HCPCS: 36415; 36416; 36600; 71045; 71275; 74174; 80048; 80053; 80162; 80202; 81001; 82553; 82805; 83036; 83605; 83690; 83735; 83880; 84484; 85025; 85610; 85730; 87040; 93005; 93010; 93306; 94760; 96361; 96365; 96366; 96367; 96375; 96376; J0610; J0611; J0692; J1160; J1644; J1940; J2270; J2272; J2405; J3370; J3475; J3490; J7030; J7050; J7070; J7120; Q9967

== ENCOUNTER 2022-11-23 15:23 | Inpatient (IN) | payer OTHER ==
[2022-11-23 15:40] VITALS: BMI 44.7
[2022-11-23] MEDS ORDERED: Morphine 2 MG/ML VIAL SLOW IVP PRN (15:40)
[2022-11-23] MEDS ORDERED: Scopolamine 1.5 mg/72 hour Patch TOP PRN (15:45)
[2022-11-23] MEDS ORDERED: Senokot S 8.6-50 MG TAB PO PRN (15:45)
[2022-11-23] MEDS ORDERED: Acetaminophen 650 MG Suppository PR PRN (15:45)
[2022-11-23] MEDS ORDERED: Lorazepam 2 MG/ML VIAL SLOW IVP PRN (15:45)
[2022-11-23] MEDS ORDERED: Ondansetron PF 4 MG/2 ML Vial IVP PRN (15:45)
[2022-11-23 15:54] VITALS: BP 101/47
[2022-11-23] MEDS: Morphine 2 MG/ML VIAL SLOW IVP SCH ×5 (16:24→22:11)
[2022-11-23 21:46] VITALS: TEMP 98.8
[2022-11-24] MEDS: Morphine 2 MG/ML VIAL SLOW IVP SCH ×3 (01:48→02:09)
== END 2022-11-23 21:00 | disposition expired | DRG 951 ==
LOC: CSHICU 15:23
PROVIDERS: ADMIT Family Medicine; ATTEND Family Medicine
DX: Z51.5 Encounter for palliative care (principal); K55.039 Acute (reversible) ischemia of large intestine, extent unspecified; I50.21 Acute systolic (congestive) heart failure; J18.9 Pneumonia, unspecified organism; I21.A1 Myocardial infarction type 2; A41.9 Sepsis, unspecified organism; E87.20 Acidosis, unspecified; N17.9 Acute kidney failure, unspecified; I48.91 Unspecified atrial fibrillation; N40.0 Benign prostatic hyperplasia without lower urinary tract symptoms; K21.9 Gastro-esophageal reflux disease without esophagitis; E78.5 Hyperlipidemia, unspecified; Z95.1 Presence of aortocoronary bypass graft
CPT/HCPCS: 94760; J2272